=== PATIENT | male | born 1950 | race Caucasian/White ===

== ENCOUNTER → 2019-03-31 | Outpatient (CLI) | payer MEDICARE ==
[~2019-03-31] MED LIST: CONTRAST GIVEN. MC PRN; IOHEXOL 240 MG/ML 50ML VIAL. PO ONE; IOHEXOL 300 MG/ML 100ML VIAL. IV ONE
--- NOTE | 2019-04-01 11:16 | RAD ---
EXAM: CT ABDOMEN/PELVIS WITH CONTRAST. HISTORY: Left inguinal hernia. TECHNIQUE: Computed tomography of the abdomen and pelvis was performed after the intravenous administration of iodinated contrast. COMPARISON: None. FINDINGS: Lung windows through the visualized portions of the bases reveal mild atelectasis. Bone windows reveal no suspicious lesions. There is grade 1 anterolisthesis at L4-5 with severe central canal stenosis. The liver, gallbladder, spleen, and adrenal glands are unremarkable. The kidneys are mildly developmentally dysmorphic, a variant of normal. There is no hydronephrosis. Ovarian arteries to the left renal lower pole arise from the left common iliac artery. Two nodules are seen along the superior aspect of the junction of the pancreatic body and tail. One measures 3.0 x 1.6 cm. Another measures 2.4 x 1.4 cm. There appear to enhance slightly more avidly than the pancreatic parenchyma. The latter abuts the adjacent stomach but does not appear to arise from it. There are no pathologically enlarged lymph nodes. There is no evidence of appendicitis. There is no small bowel obstruction. There are changes of left inguinal hernia repair. There is no clear recurrent hernia. There is a large left hydrocele. On the right, small amount of oscar protrudes into the right inguinal ring without a clear hernia. There is a trace right hydrocele. IMPRESSION: 1. No clear recurrent left inguinal hernia. There is a large left hydrocele. 2. 2 nodules along the superior aspect of the pancreatic body/tail junction are not clearly normal parenchyma. MRCP with and without contrast is recommended to exclude a neuroendocrine neoplasm. 3. Severe central canal stenosis and mild grade 1 anterolisthesis at L4-5. *One or more of the following individualized dose reduction techniques were utilized for this examination: 1. Automated exposure control. 2. Adjustment of the mA and/or kV according to patient size. 3. Use of iterative reconstruction technique. Electronically signed by: Camila Ricardo MD (04/01/2019 11:13 AM) [facility]
== END | disposition home or self-care (01) ==
LOC: CT 08:42
PROVIDERS: ATTEND Surgery
DX: M43.16 Spondylolisthesis, lumbar region (principal); M48.061 Spinal stenosis, lumbar region without neurogenic claudication; J98.11 Atelectasis; K86.89 Other specified diseases of pancreas; N43.2 Other hydrocele; K40.90 Unilateral inguinal hernia, without obstruction or gangrene, not specified as recurrent
CPT/HCPCS: 74177; Q9966; Q9967

== ENCOUNTER → 2019-04-21 | Outpatient (CLI) | payer MEDICARE ==
[~2019-04-21] MED LIST changes: -CONTRAST GIVEN. MC PRN; +GADOTERATE 7.5 MMOL/15ML VIAL. IVP ONE; -IOHEXOL 240 MG/ML 50ML VIAL. PO ONE; -IOHEXOL 300 MG/ML 100ML VIAL. IV ONE
--- NOTE | 2019-04-21 11:33 | KCIC ---
Examination: MRCP WO/W CONTRAST History: Masses along the pancreas on CT exam performed recently. Comparison/Correlation: 03/31/2019 CT Abd-Pelvis with IV and oral contrast Findings: Multiplanar, multisequence images of the abdomen were obtained including MRCP protocol. Thick slab images were provided. Maximum intensity projection images were provided. Following contrast, additional imaging axial was performed. Motion limits evaluation of multiple surgeries. Liver is normal. Gallbladder is unremarkable. Spleen is normal. Adrenal glands are normal. No biliary dilatation. Common bile duct is grossly unremarkable as not optimally delineated SPECT. No finding of stricture or suspicious filling defect. Partially visualized kidneys are unremarkable. Pancreatic duct is unremarkable. No evidence of pancreatic divisum. Along the superior margin of the mid pancreatic body, there are 2 adjacent lesions or bilobed lesion measuring 3.4 cm longitudinal by 1.7 cm transverse by up to 2.3 cm anteroposterior. The more inferior aspect of this process is mildly heterogeneously high signal on long TR images on the superior aspect is more relatively high signal. Enhancement of these lesions is noted on postcontrast imaging. Enhancement is best seen on the hepatic venous phase images. There is a structure lateral to the pancreatic head measuring up to 1.8 cm x 1.4 cm which is seen on precontrast axial image 40 of series 10. This has signal characteristics similar to pancreas, similar enhancement, and appears to be contiguous with the pancreatic head on a few images. No enlarged upper abdominal lymph nodes. No upper abdominal ascites. Impression: Bilobed mass along the dorsal aspect of the distal pancreatic body this is not definitely separate from the pancreas. It appears to abut the undersurface of the gastric fundus. Primary pancreatic neoplastic process is of concern. No associated lymph nodes identified. Discussed with Dr. Zuniga on 04/21/2019 at 11:29 AM. Electronically signed by: Pro Narayan MD (04/21/2019 11:30 AM) [facility]
== END | disposition home or self-care (01) ==
LOC: KCIC MRI 08:12
PROVIDERS: ATTEND Family Medicine
DX: K86.89 Other specified diseases of pancreas (principal)
CPT/HCPCS: 74182; 82565; A9575

== ENCOUNTER → 2020-09-10 | Outpatient (CLI) | payer MEDICARE, OTHER ==
--- NOTE | 2020-09-10 12:17 | KCIC ---
MR LUMBAR SPINE WO -[id number] Date: 09/10/2020 10:05 AM Indication: LUMBAR RADICULOPATHY. Pancreatic CA over one yr ago. Shooting pains down both legs, refinery operator alkylation destini. Frequent epidurals, no surg hx. Comparison: CT abdomen pelvis 03/31/2019. Technique: Multi-planar multi-weighted magnetic resonance imaging of the lumbar spine was performed w ithout intravenous contrast using the standard lumbar spine protocol. FINDINGS: 6 mm anterolisthesis at L4-5 due to facet arthropathy. No acute fracture. Moderate to severe multilev el degenerative disc desiccation and disc height loss. Fatty degenerative endplate changes at L5-S1. Multilevel degenerative endplate edema. The conus terminates at a normal level. No abnormal signal is seen within the visualized distal spina l cord. Redundancy of the nerve roots of the cauda equina at L2 and L3. No soft tissue abnormality in the visualized abdomen or pelvis. T12-L1: Disc bulge, asymmetric to the right. Mild facet arthropathy. No significant spinal stenosis o r neural foraminal narrowing. L1-L2: Disc bulge. Mild facet arthropathy. No significant spinal stenosis. Mild right and moderate le ft neural foraminal narrowing. L2-L3: Congenitally narrowed spinal canal. Disc bulge. Mild facet arthropathy. Prominent dorsal epidu ral fat. Moderate spinal stenosis. Mild left lateral recess narrowing. Mild right and moderate left n eural foraminal narrowing. L3-L4: Congenitally narrowed spinal canal. Disc bulge. Mild facet arthropathy. Prominent dorsal epidu ral fat. Moderate to severe spinal stenosis. Moderate severe left lateral recess narrowing. Moderate right and severe left neural foraminal narrowing. L4-L5: Congenitally narrowed spinal canal. Disc bulge. Severe facet arthropathy. Ligamentum flavum th ickening. Severe spinal stenosis and lateral recess narrowing. Moderate to severe right and moderate left neural foraminal narrowing. L5-S1: Disc bulge with left far lateral protrusion which abuts the exiting left L5 nerve root. Mild f acet arthropathy. No significant spinal stenosis. Mild right and moderate to severe left neural bakari inal narrowing. IMPRESSION: Advanced lumbar spondylosis with severe spinal canal stenosis at L4-5, moderate to severe at L3-4. De generative changes detailed in full above. Electronically signed by: Kahlil Benítez MD (09/10/2020 12:14 PM) [id number]
== END ==
LOC: KCIC MRI 09:51
PROVIDERS: ATTEND Family Medicine
DX: M47.27 Other spondylosis with radiculopathy, lumbosacral region (principal)
CPT/HCPCS: 72148

== ENCOUNTER → 2020-10-04 | Outpatient (CLI) | payer MEDICARE, OTHER ==
[~2020-10-04] MED LIST changes: +DICL50TA2 PO; -GADOTERATE 7.5 MMOL/15ML VIAL. IVP ONE; +IOHEXOL 180 MG/ML 10 ML VIAL. ONE; +LISI10TA16 PO; +LISI1TAB37 PO; +methylPREDNISolone ACETATE 40 MG/ML VIAL. ONE; +methylPREDNISolone ACETATE 80 MG/ML VIAL. ONE
--- NOTE | 2020-10-04 09:26 | PDOC1 ---
INITIAL PAIN CONSULT DATE OF SERVICE: DOS: DATE: 10/04/20 TIME: 09:21 CHIEF COMPLAINT: Chief Complaint: Low back and bilateral lower extremity pain HISTORY OF PRESENT ILLNESS: 70-year-old male presents with history of pain low back bilateral extremities for 3 to 4 years. Patient reports not result of any specific injury or accident that he is aware of has had pain in the low back and bilateral lower extremities radiating the posterior gluteus posterior thigh posterior calf lateral thighs and calves as well getting worse over the past several months. Patient reports she is done some physical therapy in the past also had chiropractic treatment which is only temporarily helpful. Patient reports been taking Tylenol which does decrease the pain patient reports it wakes him from sleep least 4-5 times a night does not affect his bowel bladder control but does affect is ability to walk using a cane in his right hand and has that with him today. Patient describes pain is constant and sharp in the low back radiating shooting in the lower extremities with tingling and numbness in the legs that radiates as well and cramping in the back better with sitting or laying down but again awakened from sleep frequently. Patient reports is only able to walk about 5 to 10 minutes before he has to sit because the pain becomes excruciating in both legs somewhat more on the right than the left. Patient have MRI scan lumbar spine sh owing advanced lumbar spondylosis with severe spinal canal stenosis L4-5 and moderately at L3-4 with a disc bulge at L5-S1 with far left lateral protrusion abutting the exiting L5 nerve root. Patient rates his disability rating 0-10 10 being the worst is 7 with family home responsibilities and recreation 5 with social activity 7 with occupational activity 5-6 behavior 7 with self-care and 3 with life support activities. Patient reports no motor loss but significant fatigability with the bilateral lower extremities again worse on the right. PAST MEDICAL HISTORY: PMH: Arthritis, hypertension, pancreatic cancer, lung cancer PREVIOUS SURGERIES: Past Surgical Hx: Appendectomy, knee surgery, tonsillectomy, hernia repair, pancreatic resection CURRENT MEDICATIONS: Current Meds: Active Scripts Medications Dose Route/Sig Max Daily Dose Days Date Category Lisinopril-Hctz 20-12.5 Mg Tab (Lisinopril/Hydrochlorothiazide) 1 Each Tablet 1 Tab PO DAILY 10/04/20 Reported Diclofenac Potassium 50 Mg Tablet 1 Tab PO BID 10/04/20 Reported ALLERGIES; Allergies: Coded Allergies: No Known Drug Allergies (Unverified , 03/31/19) FAMILY HISTORY: Family Hx: Cancers, hypertension SOCIAL HISTORY: Social Hx: Patient is nondrug alcohol does not smoke not use any illegal illicit recreational drugs is lives with his spouse lives locally in [facility] REVIEW OF SYSTEMS: ROS: Positive for those items mentioned in history of present illness, all systems are reviewed, otherwise negative ,and are complete full and well-documented on patient's chart. PHYSICAL EXAM: VS: Blood pressure is 139/83 pulse 67 respirations 18 temperature 98.2 F height is 5 feet 5 inches weight is 183 pounds PE: PHYSICAL EXAMINATION: GENERAL: The patient is awake, alert, oriented, appropriate, very pleasant demeanor HEENT: Shows normocephalic, atraumatic. Extraocular movements are intact and symmetrical. Oral cavity: Mucous membranes moist and pink. Dentition is intact. NECK: Shows anterior throat supple without palpable lymphadenopathy noted. Swallow reflex symmetrical. CHEST: Shows normal on inspection. Breath sounds are clear bilaterally, no rales rhonchi or wheezes auscultated. HEART: Shows S1, S2 clear. No murmurs auscultated. ABDOMEN: Soft, nontender, nondistended, obese. No palpable organomegaly is noted. No rebound or guarding demonstrated. BACK: Shows spine grossly in the midline. Normal-appearing cervical lordotic curvature. There is slightly increased thoracic kyphosis, some minor flattening of the lumbar lordotic curvature. Lumbar paraspinous muscles show symmetrical on inspection, on palpation shows some moderate tenderness diffusely throughout the upper, middle and lower distribution of the paraspinous muscles bilaterally and also into the lower thoracic paraspinous musculature, firm and tender, but without specific trigger points, without radiation of pain. The patient has good rotational motion of the lumbar spine, both laterally as well as extension and flexion without significant difficulty. No tenderness over the spinous processes, sacrum or sacroiliac regions. EXTREMITIES: Lower extremities show deep tendon reflexes 1+ in the patellar and tendo calcaneus tendons. Motor exam is 4 on a scale of 5 with right dorsifle xion, extension, quadriceps and hamstring flexion and 5/5 on the left. Peripheral pulses are 1+ posterior tibial. No peripheral edema is noted bilaterally. Lower extremities are warm and dry to touch, equal in color and appearance. Straight leg raise noted to be positive on the right about 40 degrees, left side is negative. Gaenslen's and Donaldo's maneuvers are negative as well. The patient is able to stand, stand on his toes without significant difficulty but has a shuffling gait and does appear to favor the right lower extremity fairly significantly using a cane in his right hand to ambulate. SKIN: Shows warm and dry, good turgor. No edema. No sores, rashes or bruising throughout. IMPRESSION: Impression: 70-year-old male with 3 to 4-year history of low back and bilateral lower extremity pain in a radicular fashion. MRI scan lumbar spine as noted Arthritis Hypertension History of pancreatic cancer Plan: Options were discussed with the patient including conservative medical management continued physical therapy interventional techniques. Patient would like to pursue interventional techniques. We discussed a lumbar epidural steroid injection using descriptions as well as anatomical models described procedure. Risks were discussed including but not limited to: Bleeding, infection, possibility of epidural hematoma and subsequent neurological c ompromise, dural puncture, headaches, spinal cord and/or nerve damage, side effects of steroid medication, and poor results regarding pain control. Patient understands and wished to proceed. Patient will return to the clinic in approximate 2 weeks for follow-up, was counseled as to return appointment activity level and side effects to be aware of. Procedure is lumbar epidural steroid injection under local anesthetic using sterile prep and drape at the L5-S1 level using C-arm fluoroscopic guidance in both AP and lateral views medications injected is 120 mg Depo-Medrol + 10 mL preservative-free normal saline and 2 mL contrast- condition at discharge is stable patient tolerated procedure well had no complications. DAVID DOBBS MD Oct 04, 2020 09:26
--- NOTE | 2020-10-04 09:27 | PDOC4 ---
PROCEDURE Procedure Patient was consented for lumbar epidural steroid injection. Risks were dis cussed including but not limited to: Bleeding, infection, possibility of epidural hematoma and subsequent neurological compromise, dural puncture, headaches, spinal cord and/or nerve damage, side effects of steroid medication, and poor results regarding pain control. Patient understands and wished to proceed. Procedure is lumbar epidural steroid injection under local anesthetic using sterile prep and drape at the L5-S1 level using C-arm fluoroscopic guidance in both AP and lateral views medications injected is 120 mg Depo-Medrol + 10 mL preservative-free normal saline and 2 mL contrast- condition at discharge is stable patient tolerated procedure well had no complications. DAVID DOBBS MD Oct 04, 2020 09:27
== END | disposition home or self-care (01) ==
LOC: PNCL 08:17
PROVIDERS: ATTEND Anesthesiology
DX: M54.5 Low back pain (principal); M79.605 Pain in left leg; M79.604 Pain in right leg; M19.90 Unspecified osteoarthritis, unspecified site; I10 Essential (primary) hypertension; Z85.118 Personal history of other malignant neoplasm of bronchus and lung; Z79.899 Other long term (current) drug therapy; Z98.890 Other specified postprocedural states; Z85.07 Personal history of malignant neoplasm of pancreas
CPT/HCPCS: 62323; J1030; J1040; Q9965

== ENCOUNTER → 2020-10-18 | Outpatient (CLI) | payer MEDICARE, OTHER ==
--- NOTE | 2020-10-18 09:17 | PDOC4 ---
PROCEDURE Procedure Patient was consented for lumbar epidural steroid injection. Risks were dis cussed including but not limited to: Bleeding, infection, possibility of epidural hematoma and subsequent neurological compromise, dural puncture, headaches, spinal cord and/or nerve damage, side effects of steroid medication, and poor results regarding pain control. Patient understands and wished to proceed. Procedure is lumbar epidural steroid injection under local anesthetic using sterile prep and drape at the L5-S1 level using C-arm fluoroscopic guidance in both AP and lateral views medications injected is 120 mg Depo-Medrol +10mL preservative-free normal saline and 2 mL contrast- condition at discharge is stable patient tolerated procedure well had no complications. DAVID DOBBS MD October 18, 2020 09:17
--- NOTE | 2020-10-18 09:17 | PDOC ---
Progress Note - Pain Clinic Date of Service: DOS: DATE: 10/18/20 TIME: 09:15 Diagnosis: Dx: Lumbar radiculopathy with lumbar degenerative disc disease and lumbar spinal stenosis History or Present Illness: HPI: 70-year-old male returns for follow-up status post lumbar epidural straight injection x1. Patient with about 50% improvement after the first 2 weeks following the injection with pain still about 50% improved in the low back and bilateral lower extremity slightly worse on the right than left but present bilaterally radiating from the low back into the posterior gluteus bilaterally bilateral calves bilateral thighs to the ankles patient reports is a 7 on scale 10 is worse over the past week 5 on average/and is a 5 today patient scribes pain is aching and sharp shooting on and off in intensity no new motor or sensory deficits initially was doing much better with distance walking doing household activities travel with greater ease and comfort patient reports that his sleeping is improving as well but he still waking her from sleep about once every 6 hours. Patient reports no new motor or sensory deficits no new bowel or bladder incontinence or other complaints. Physical Exam: VS: Blood pressure is 126/76 pulse 59 respirations 18 temperature 98.4 F weight is 194 pounds PE: PHYSICAL EXAMINATION: GENERAL: The patient is awake, alert, oriented, appropriate, very pleasant demeanor HEENT: Shows normocephalic, atraumatic. Extraocular movements are intact and symmetrical. Oral cavity: Mucous membranes moist and pink. NECK: Shows anterior throat supple without palpable lymphadenopathy noted. Swal low reflex symmetrical. CHEST: Shows normal on inspection. Breath sounds are clear bilaterally. HEART: Shows S1, S2 clear. No murmurs auscultated. ABDOMEN: Soft, nontender, nondistended. No palpable organomegaly is noted. No rebound or guarding demonstrated. BACK: Shows spine grossly in the midline. Normal-appearing cervical lordotic curvature. There is slightly increased thoracic kyphosis, some minor flattening of the lumbar lordotic curvature. Lumbar paraspinous muscles show symmetrical on inspection, on palpation shows some moderate tenderness diffusely throughout the upper, middle and lower distribution of the paraspinous muscles, but without specific trigger points, without radiation of pain. The patient has good rotational motion of the lumbar spine, both laterally as well as extension and flexion without significant difficulty. EXTREMITIES: Lower extremities show deep tendon reflexes 1+ in the patellar and tendo calcaneus tendons. Motor exam is 4 on a scale of 5 with right dorsiflexion, extension, quadriceps and hamstring flexion and 5/5 on the left. Peripheral pulses are 1+ posterior tibial. No peripheral edema is noted bilaterally. Lower extremities are warm and dry to touch, equal in color and appearance. SKIN: Shows warm and dry, good turgor. No edema. No sores, rashes or bruising throughout. Procedure: Procedure: Options discussed with patient. Patient chart was reviewed his his current medication regimen updated current review of systems updated today as well. We will proceed with a second in the series lumbar epidural steroid traction table fluoroscopic guidance. Risks were discussed including but not limited to: Bleeding, infection, possibility of epidural hematoma and subsequent neurological compromise, dural puncture, headaches, spinal cord and/or nerve damage, side effects of steroid medication, and poor results regarding pain control. Patient understands and wished to proceed. Patient will return to the clinic in approximate 2 weeks for follow-up, was counseled as return appointment, activity level, and side effects to be aware of. Medication Injected: Med Injected: Procedure is lumbar epidural steroid injection under local anesthetic using sterile prep and drape at the L5-S1 level using C-arm fluoroscopic guidance in both AP and lateral views medications injected is 120 mg Depo-Medrol +10mL preservative-free normal saline and 2 mL contrast- condition at discharge is stable patient tolerated procedure well had no complications. Condition at Discharge: Condition at Discharge: Condition at discharge is stable, patient already procedure well and had no complications. DAVID DOBBS MD October 18, 2020 09:17
== END | disposition home or self-care (01) ==
LOC: PNCL 08:39
PROVIDERS: ATTEND Anesthesiology
DX: M51.16 Intervertebral disc disorders with radiculopathy, lumbar region (principal); M48.061 Spinal stenosis, lumbar region without neurogenic claudication; Z79.899 Other long term (current) drug therapy
CPT/HCPCS: 62323; J1030; J1040; Q9965

== ENCOUNTER → 2020-11-01 | Outpatient (CLI) | payer MEDICARE, OTHER ==
--- NOTE | 2020-11-01 10:05 | PDOC4 ---
PROCEDURE Procedure Patient was consented for lumbar epidural steroid injection. Risks were dis cussed including but not limited to: Bleeding, infection, possibility of epidural hematoma and subsequent neurological compromise, dural puncture, headaches, spinal cord and/or nerve damage, side effects of steroid medication, and poor results regarding pain control. Patient understands and wished to proceed. Procedure is lumbar epidural steroid injection under local anesthetic using sterile prep and drape at the L5-S1 level using C-arm fluoroscopic guidance in both AP and lateral views medications injected is 120 mg Depo-Medrol +10mL preservative-free normal saline and 2 mL contrast- condition at discharge is stable patient tolerated procedure well had no complications. DAVID DOBBS MD November 01, 2020 10:05
--- NOTE | 2020-11-01 10:05 | PDOC ---
Progress Note - Pain Clinic Date of Service: DOS: DATE: 11/01/20 TIME: 10:02 Diagnosis: Dx: Lumbar radiculopathy with lumbar degenerative disc disease and lumbar spinal stenosis History or Present Illness: HPI: 70-year-old male returns for follow-up status post lumbar epidural steroid injection x2. Patient reports about 50% improvement overall in the low back and lower extremities patient reports still some pain the low back right lower extremity posterior gluteus posterior thigh posterior calf some on the left as well but mostly on the right worse with walking and standing patient reports he is getting ready to go to a new job which is a [employer] and will be very active with this and is hoping to get his pain down prior to this. Patient reports much better after last injection walking with greater distances with greater ease doing household activities greater ease and travel with greater ea se as well. Patient reports no new motor or sensory deficits no new bowel or bladder incontinence patient reports the pain is in the low back that sharp shooting in the legs on and off in intensity again better with sitting or lying down generally not awaken him from sleep but over the past few days has about once every 6 hours. Patient rates his pain a 7 on scale 10 is worse over the past week for an average for its least is a 4 today. Physical Exam: VS: Blood pressure 134/29 pulse 64 respirations 18 temperature 98.1 F weight is 179 pounds PE: PHYSICAL EXAMINATION: GENERAL: The patient is awake, alert, oriented, appropriate, very pleasant demeanor HEENT: Shows normocephalic, atraumatic. Extraocular movements are intact and symmetrical. Oral cavity: Mucous membranes moist and pink. Dentition is intact. NECK: Shows anterior throat supple without palpable lymphadenopathy noted. Swallow reflex symmetrical. CHEST: Shows normal on inspection. Breath sounds are clear bilaterally. HEART: Shows S1, S2 clear. No murmurs auscultated. ABDOMEN: Soft, nontender, nondistended, obese. No palpable organomegaly is noted. BACK: Shows spine grossly in the midline. Normal-appearing cervical lordotic curvature. There is slightly increased thoracic kyphosis, some minor flattening of the lumbar lordotic curvature. Lumbar paraspinous muscles show symmetrical on inspection, on palpation shows some moderate tenderness diffusely throughout the upper, middle and lower distribution of the paraspinous muscles, but without specific trigger points, without radiation of pain. The patient has good rotational motion of the lumbar spine, both laterally as well as extension and flexion without significant difficulty. EXTREMITIES: Lower extremities show deep tendon reflexes 1 in the patellar and tendo calcaneus tendons. Motor exam is 4 on a scale of 5 with right dorsiflexion, extension, quadriceps and hamstring flexion and 5/5 on the left. Peripheral pulses are 1+ posterior tibial. No peripheral edema is noted bilaterally. Lower extremities are warm and dry. SKIN: Shows warm and dry, good turgor. No edema. No sores, rashes or bruising throughout. Procedure: Procedure: Options were discussed with patient. Patient chart was reviews his current medication regimen updated current view of systems updated today as well. We will proceed with a third in the series lumbar epidural steroid injection with fluoroscopic guidance. Risks were discussed including but not limited to: Bleeding, infection, possibility of epidural hematoma and subsequent neurological compromise, dural puncture, headaches, spinal cord and/or nerve damage, side effects of steroid medication, and poor results regarding pain cont rol. Patient understands and wished to proceed. Patient will return to the clinic in approximately 2 weeks for follow-up, was counseled as return appointment activity level and side effects to be aware of. Medication Injected: Med Injected: Procedure is lumbar epidural steroid injection under local anesthetic using sterile prep and drape at the L5-S1 level using C-arm fluoroscopic guidance in both AP and lateral views medications injected is 120 mg Depo-Medrol +10mL preservative-free normal saline and 2 mL contrast- condition at discharge is stable patient tolerated procedure well had no complications. Condition at Discharge: Condition at Discharge: Condition at discharge is stable, patient already the procedure well and had no complications. DAVID DOBBS MD November 01, 2020 10:04
== END | disposition home or self-care (01) ==
LOC: PNCL 09:07
PROVIDERS: ATTEND Anesthesiology
DX: M51.16 Intervertebral disc disorders with radiculopathy, lumbar region (principal); M48.061 Spinal stenosis, lumbar region without neurogenic claudication; Z79.899 Other long term (current) drug therapy
CPT/HCPCS: 62323; J1030; J1040; Q9965

== ENCOUNTER → 2020-12-17 | Outpatient (CLI) | payer MEDICARE, OTHER ==
[~2020-12-17] MED LIST changes: +HYDR-2761 PO; -IOHEXOL 180 MG/ML 10 ML VIAL. ONE; -methylPREDNISolone ACETATE 40 MG/ML VIAL. ONE; -methylPREDNISolone ACETATE 80 MG/ML VIAL. ONE
--- NOTE | 2020-12-17 09:16 | PDOC ---
Progress Note - Pain Clinic Date of Service: DOS: DATE: 12/17/20 TIME: 09:11 Diagnosis: Dx: Lumbar radiculopathy with lumbar degenerative disease and lumbar spinal stenosis History or Present Illness: HPI: 70-year-old male returns for follow-up status post lumbar epidural steroid injection x3. Patient reports that initially he did well with about a 50% improvement but after the last injection the pain is returned fairly significantly in the low back and bilateral lower extremities posterior gluteus posterior thigh posterior calf lateral thighs anterior cast medial calves reported sharp and shooting stabbing in the back can be severe as well. Patient reports his pain is now a 10 on a scale of 10 at all times worst least and average is a 10 today. Patient reports awakening from sleep once again average 4 to 6 hours initially was doing much better with distance walking doing household activities work activities sleeping better but now the pain is returned fairly significantly. We did review the MRI scan with him showing sev eral levels of spondylosis with severe spinal canal stenosis L4-5 and L3-4 with lateral protrusion at L5-S1 abutting the exiting nerve roots. Patient reports he has tried new medications [id number] except Tylenol as well as Motrin without significant decrease in pain patient reports he did have a hydrocodone at home which he took which decrease the pain fairly significantly. Patient reports he is having a hydrocele repaired in about 2 weeks and would like to discuss possible surgical options for his back as well. Physical Exam: VS: Blood pressure is 160/59 pulse 99 patient is 98.3 F height is 5 feet 5 inches weight is 176 pounds PE: PHYSICAL EXAMINATION: GENERAL: The patient is awake, alert, oriented, appropriate, very pleasant in demeanor. HEENT: Shows normocephalic, atraumatic. Extraocular movements are intact and s ymmetrical. NECK: Shows anterior throat supple without palpable lymphadenopathy noted. Swallow reflex symmetrical. CHEST: Shows normal on inspection. Breath sounds are clear bilaterally, distant but no rales or rhonchi. HEART: Shows S1, S2 clear. No murmurs auscultated. ABDOMEN: Soft, nontender, nondistended, obese. BACK: Shows spine grossly in the midline. Normal-appearing cervical lordotic curvature. There is increased thoracic kyphosis, some flattening of the lumbar lordotic curvature. Lumbar paraspinous muscles show symmetrical on inspection, with palpation shows some moderate tenderness diffusely throughout the upper, middle and lower distribution of the paraspinous muscles without specific trigger points, without radiation of pain. The patient has good rotational motion of the lumbar spine, both laterally as well as extension and flexion without significant difficulty. No tenderness over the spinous processes, sacrum or sacroiliac regions. EXTREMITIES: Lower extremities show deep tendon reflexes 1+ in the patellar and tendo calcaneus tendons. Motor exam is 4 on a scale of 5 with right dorsiflexion, extension, quadriceps and hamstring flexion and 5/5 on the left. Peripheral pulses are 1+ posterior tibial. No peripheral edema is noted bilate rally. Lower extremities are warm and dry. Patient has significant difficulty standing up from a seated position and is walking with a cane today very shuffling slow gait favoring the right lower extremity. SKIN: Shows warm and dry, good turgor. No edema. No sores, rashes or bruising throughout. Procedure: Procedure: Options were discussed with the patient. Patient's chart was reviewed his current medication regimen updated current review of systems updated today as well. We will make referral for neurosurgical evaluation. Also patient given hydrocodone 5 mg with instructions side effects to be aware of discussed sent to his pharmacy [facility]. Also Medrol Dosepak with instructions side effects to be aware of discussed. Patient will follow-up after neurosurgical evaluation if necessary. Medication Injected: Med Injected: None Condition at Discharge: Condition at Discharge: Condition at discharge is stable. DAVID DOBBS MD Dec 17, 2020 09:16
== END | disposition home or self-care (01) ==
LOC: PNCL 08:27
PROVIDERS: ATTEND Anesthesiology
DX: M51.16 Intervertebral disc disorders with radiculopathy, lumbar region (principal); M48.061 Spinal stenosis, lumbar region without neurogenic claudication; Z79.899 Other long term (current) drug therapy
CPT/HCPCS: 99212; G0463

== ENCOUNTER → 2021-05-30 | Outpatient (CLI) | payer MEDICARE, OTHER ==
--- NOTE | 2021-05-30 10:53 | KCIC ---
EXAM: Left knee, 3 views. HISTORY: Pain and swelling. COMPARISON: None. FINDINGS: 3 views of the left knee are obtained. There is medial compartment joint space narrowing an d subchondral sclerosis. There is mild tricompartment marginal spurring. There is trace joint fluid. There is no fracture, dislocation or subluxation. IMPRESSION: Mild medial compartment predominant osteoarthritis of the left knee with trace joint flui d. No acute osseous finding. Electronically signed by: Hoa Aguirre MD (05/30/2021 10:51 AM) [id number]
== END ==
LOC: KCIC 10:24
PROVIDERS: ATTEND Family Medicine
DX: M17.12 Unilateral primary osteoarthritis, left knee (principal); M76.892 Other specified enthesopathies of left lower limb, excluding foot; M25.862 Other specified joint disorders, left knee
CPT/HCPCS: 73562